=== PATIENT | female | born 1980 | race Caucasian/White ===

== ENCOUNTER 2018-11-04 16:24 | Emergency (ER) | payer MEDICAID ==
[~2018-11-04] VITALS: Ht 165.1 cm; Wt 108.0 kg
[~2018-11-04 16:24] MED LIST: DROS1TAB PO; IBUP-974 PO
[2018-11-04 17:09] VITALS: BP 143/83
--- NOTE | 2018-11-04 19:29 | NUR ---
PT AMBULATED TO BED #6
--- NOTE | 2018-11-04 19:30 | NUR ---
PATIENT CAME TO ER WITH C/O PAIN TO THE LEFT FOOT. PT STATES SHE JUMPED INTO SOME WATER AND INJURED HER FOOT. PT HAS SOME REDNESS AND BRUISING TO SIGHT. PATIENT STATES PAIN OF 8/10 AT THIS TIME; VSS; PATIENT POSITIONED FOR COMFORT; HOB ELEVATED; BEDRAILS UP X2; BED DOWN. ER MD MADE AWARE OF PT STATUS.NKA AND NO PRIOR MEDICAL HX.
--- NOTE | 2018-11-04 21:34 | NUR ---
Patient discharged with v/s stable. Written and verbal after care instructions given and explained. Patient verbalized understanding. Ambulatory with CRUTCHES. All questions addressed prior to discharge. Advised to follow up with PMD.
[2018-11-04 21:36] VITALS: BP 143/83
== END 2018-11-04 21:34 | disposition home or self-care (01) ==
LOC: MED 16:24
DX: S93.602A Unspecified sprain of left foot, initial encounter (principal); Z79.1 Long term (current) use of non-steroidal anti-inflammatories (NSAID); Z79.899 Other long term (current) drug therapy; X58.XXXA Exposure to other specified factors, initial encounter; Y93.39 Activity, other involving climbing, rappelling and jumping off; Y92.89 Other specified places as the place of occurrence of the external cause; Y99.8 Other external cause status
CPT/HCPCS: 73630; 81025; 99283

== ENCOUNTER 2023-01-10 11:53 | Emergency (ER) | payer SELFPAY ==
[~2023-01-10] VITALS: Ht 165.1 cm; Wt 10.0 kg
[2023-01-10 11:59] VITALS: BP 136/80
[2023-01-10] MEDS ORDERED: BACITRACIN OINT 500 UNITS/GM PKT TP ONE ×2 (12:25→13:36)
[2023-01-10] MEDS ORDERED: LIDOCAINE MPF 1% 10 MG/ML VIAL INJ ONE (12:25)
--- NOTE | 2023-01-10 13:32 | NUR ---
AMBULATED TO BED IN NO DISTRESS. The patient's care was reviewed and supervised by MARIO HERNANDES RN.
[2023-01-10] MEDS ORDERED: LIDOCAINE MPF 1% 5 ML ONE ×2 (13:36→13:38)
[2023-01-10] MEDS ORDERED: BACI-416 TP (14:02)
[2023-01-10 14:19] VITALS: BP 141/70
--- NOTE | 2023-01-10 14:19 | NUR ---
Patient discharged with v/s stable. Written and verbal after care instructions given. Patient alert, oriented and verbalized understanding of instructions. Ambulatory with steady gait. All questions addressed prior to discharge. ID band removed. Patient advised to follow up with PMD. Rx of Bacitracin given. Opportunity to ask questions provided and answered.
== END 2023-01-10 14:19 | disposition home or self-care (01) ==
LOC: MED 11:53
DX: S61.213A Laceration without foreign body of left middle finger without damage to nail, initial encounter (principal); W26.0XXA Contact with knife, initial encounter; Y93.89 Activity, other specified; Y92.89 Other specified places as the place of occurrence of the external cause; Y99.8 Other external cause status
CPT/HCPCS: 12001; 99282; J2001